=== PATIENT | male | born 1990 | race Caucasian/White ===

== ENCOUNTER 2018-11-02 02:20 | Emergency (ER) | payer OTHER ==
[~2018-11-02] VITALS: Ht 180.3 cm; Wt 75.0 kg
[2018-11-02 02:21] VITALS: BP 180/108
[2018-11-02] MEDS ORDERED: DERMABOND TOPICAL SKIN ADHESIVE TOP ONE (03:15)
== END 2018-11-02 03:30 | disposition home or self-care (01) ==
LOC: M ED 02:20
DX: S01.81XA Laceration without foreign body of other part of head, initial encounter (principal); W01.10XA Fall on same level from slipping, tripping and stumbling with subsequent striking against unspecified object, initial encounter; Y92.9 Unspecified place or not applicable; Y93.9 Activity, unspecified; Y99.9 Unspecified external cause status

== ENCOUNTER → 2023-06-21 | Outpatient (CLI) | payer OTHER | LOC: M RAD 07:35 | PROVIDERS: ATTEND General Practice | DX: I10 Essential (primary) hypertension (principal) ==